=== PATIENT | female | born 1985 | race Caucasian/White ===

== ENCOUNTER 2016-06-06 10:24 | Emergency (ER) | payer OTHER ==
[2016-06-06 11:24] VITALS: BP 115/85
--- NOTE | 2016-06-06 11:56 | ED ---
Upper Extremity Pain - HPI Summary HPI Summary: 31yr female with complaint of right thumb. Onset last night when she picked up her son. She has pain 8/10. Pain over the base of proximal phalynx. Pain worse with movement. She denies numbness or tingling in the finger. No other complaints. Denies swelling. - History of Current Complaint Chief Complaint: UCUpperExtremity Stated Complaint: RIGHT THUMB PAIN Time Seen by Provider: 06/06/16 11:40 Hx Last Menstrual Period: IS ON CONTINUOUS BC. DOES NOT HAVE REG PERIODS - Allergies/Home Medications Allergies/Adverse Reactions: Allergies Allergy/AdvReac Type Severity Reaction Status Date / Time Hydrocodone [From Vicodin] Allergy Severe Hives Verified 06/06/16 11:08 Latex Allergy Severe Hives Verified 06/06/16 11:08 Morphine Allergy Severe Hives Verified 06/06/16 11:08 Penicillins Allergy Severe Hives Verified 06/06/16 11:08 PMH/Surg Hx/FS Hx/Imm Hx Previously Healthy: Yes Cardiovascular History: Denies: Hx Congestive Heart Failure, Hx Deep Vein Thrombosis, Hx Hypertension , Hx Myocardial Infarction, Hx Pacemaker/ICD Respiratory History: Denies: Hx Asthma, Hx Chronic Obstructive Pulmonary Disease (COPD), Hx Pneumonia, Hx Pulmonary Embolism - Surgical History Surgery Procedure, Year, and Place: 2 c-sections. TUBAL LIGATION. Appendectomy 2006 Infectious Disease History: No Infectious Disease History: Denies: Hx Clostridium Difficile, Hx Hepatitis, Hx Human Immunodeficiency Virus (HIV), Hx of Known/Suspected MRSA, Hx Shingles, Hx Tuberculosis, Hx Known/ Suspected VRE, Hx Known/Suspected VRSA, History Other Infectious Disease, Traveled Outside the [place] in Last 30 Days - Family History Known Family History: Positive: Cardiac Disease, Hypertension, Diabetes, Other - son with asthma - Social History Alcohol Use: None Substance Use Type: Reports: None Smoking Status (MU): Never Smoked Tobacco Review of Systems Constitutional: Negative Eyes: Negative ENT: Negative Cardiovascular: Negative Respiratory: Negative Musculoskeletal: Other - pain in the right thumb Skin: Negative Neurological: Negative All Other Systems Reviewed And Are Negative: Yes Physical Exam Triage Information Reviewed: Yes Vital Signs On Initial Exam: Initial Vitals Temp Pulse Resp BP Pulse Ox 98.8 F 97 16 115/85 100 06/06/16 11:04 06/06/16 11:04 06/06/16 11:04 06/06/16 11:04 06/06/16 11:04 Vital Signs Reviewed: Yes Appearance: Positive: Well-Appearing, No Pain Distress Skin: Positive: Warm, Skin Color Reflects Adequate Perfusion Head/Face: Positive: Normal Head/Face Inspection Eyes: Positive: Normal, EOMI Neck: Positive: Supple, Nontender Respiratory/Lung Sounds: Positive: Clear to Auscultation, Breath Sounds Present Cardiovascular: Positive: Other - pulses strong and good capillary refill right upper extremity Musculoskeletal: Positive: Other - right thumb without soft tissue swelling. She is tender over the proximal phalynx, and base of phalynx. No bruising. Neurological: Positive: Normal, Sensory/Motor Intact, Alert, Oriented to Person Place, Time, CN Intact II-III - [place] Coma Scale Best Eye Response: 4 - Spontaneous Best Motor Response: 6 - Obeys Commands Best Verbal Response: 5 - Oriented Diagnostics - Vital Signs Vital Signs Temp Pulse Resp BP Pulse Ox 06/06/16 11:04 98.8 F 97 16 115/85 100 - Laboratory Lab Statement: Any lab studies that have been ordered have been reviewed, and results considered in the medical decision making process. - Radiology right hand xray Xray Interpretation: No Acute Changes Radiology Interpretation Completed By: Radiologist Course/Dx - Course Course Of Treatment: 31 yr old with thumb pain after lifting her son. She refused to wait for xray results or for final disposition. She wanted to leave right away. No chance for any offering of a splint. She signed out AMA with risk of disability and continued pain, and incomplete evaluation, lack of referrals etc. - Diagnoses Provider Diagnoses: Thumb pain Discharge - Discharge Plan Condition: Good Disposition: AGAINST MEDICAL ADVICE Referrals: OPHELIA Sargent [Primary Care Provider] -
--- NOTE | 2016-06-06 12:17 | RAD ---
HISTORY: Right thumb trauma COMPARISONS: None VIEWS: 4, Frontal, lateral, and oblique views of the right hand FINDINGS: BONE DENSITY: Normal. BONES: There is no displaced fracture. JOINTS: There is no arthropathy. ALIGNMENT: There is no dislocation. SOFT TISSUES: Unremarkable. OTHER FINDINGS: None. IMPRESSION: NO ACUTE OSSEOUS INJURY. IF SYMPTOMS PERSIST, RECOMMEND REPEAT IMAGING.
== END 2016-06-06 12:12 | disposition left against medical advice (07) ==
LOC: UCCORT 10:24
DX: M79.644 Pain in right finger(s) (principal); Z88.5 Allergy status to narcotic agent; Z22.0 Carrier of typhoid
CPT/HCPCS: 99212; G0463

== ENCOUNTER 2016-08-18 19:59 | Emergency (ER) | payer OTHER ==
[2016-08-18 20:27] VITALS: BP 127/74
--- NOTE | 2016-08-18 20:52 | UC ---
Eye Complaint HPI - HPI Summary HPI Summary: pt presents with c/o bilateral eye, redness, discomfort, purulent discharge, and known exposure to conjunctivitis - History of Current Complaint Chief Complaint: UCEye Stated Complaint: EYE Time Seen by Provider: 08/18/16 20:48 Hx Obtained From: Patient Hx Last Menstrual Period: n/a ?: No Onset/Duration: Sudden Onset, Lasting Hours Timing: Constant Severity Initially: Mild Severity Currently: Mild Character: Dull, Foreign Body Sensation Aggravating Factor(s): Light Associated Signs And Symptoms: Positive: Photophobia, Drainage (Purulent) - Allergies/Home Medications Allergies/Adverse Reactions: Allergies Allergy/AdvReac Type Severity Reaction Status Date / Time Hydrocodone [From Vicodin] Allergy Severe Hives Verified 08/18/16 20:27 Latex Allergy Severe Hives Verified 08/18/16 20:27 Morphine Allergy Severe Hives Verified 08/18/16 20:27 Penicillins Allergy Severe Hives Verified 08/18/16 20:27 PMH/Surg Hx/FS Hx/Imm Hx Previously Healthy: Yes - Surgical History Surgical History: Yes Surgery Procedure, Year, and Place: 2 c-sections. TUBAL LIGATION. Appendectomy 2006 - Family History Known Family History: Positive: None, Cardiac Disease, Hypertension, Diabetes, Other - son with asthma - Social History Alcohol Use: None Substance Use Type: None Smoking Status (MU): Never Smoked Tobacco - Immunization History Most Recent Influenza Vaccination: 2014 Review of Systems Constitutional: Negative Skin: Negative Eyes: Drainage, Eye Redness, Photophobia ENT: Negative Respiratory: Negative Cardiovascular: Negative Gastrointestinal: Negative Genitourinary: Negative Motor: Negative Neurovascular: Negative Musculoskeletal: Negative Neurological: Negative Psychological: Negative All Other Systems Reviewed And Are Negative: Yes Physical Exam Triage Information Reviewed: Yes Appearance: Well-Appearing Vital Signs: Initial Vital Signs Temp 99.5 F 08/18/16 20:21 Pulse 84 08/18/16 20:21 Resp 18 08/18/16 20:21 BP 127/74 08/18/16 20:21 Eye Exam: Other Eyes: Positive: Conjunctiva Inflamed, Discharge - yellow Neck exam: Normal Respiratory Exam: Normal Neurological Exam: Normal Psychological Exam: Normal Skin Exam: Normal Eye Complaint Course/Dx - Differential Dx/Diagnosis Differential Diagnosis/HQI/PQRI: Conjunctivitis Provider Diagnoses: conjunctivitis Discharge - Discharge Plan Condition: Stable Disposition: HOME Patient Education Materials: Conjunctivitis (ED) Referrals: OPHELIA Sargent [Primary Care Provider] - If Needed Additional Instructions: Please follow up with your eye care provider as needed.
[2016-08-18] MEDS ORDERED: Polymyx/Trimethoprim OPTH* 10 ML BTL BOTH EYES ONE (20:53)
== END 2016-08-18 21:16 | disposition home or self-care (01) ==
LOC: UCCORT 19:59
DX: H10.33 Unspecified acute conjunctivitis, bilateral (principal); Z88.0 Allergy status to penicillin; Z88.5 Allergy status to narcotic agent; Z91.040 Latex allergy status
CPT/HCPCS: 99212; G0463

== ENCOUNTER 2016-09-19 08:25 | Emergency (ER) | payer OTHER ==
[2016-09-19 08:35] VITALS: BP 113/71
--- NOTE | 2016-09-19 18:11 | UC ---
Throat Pain/Nasal Boo HPI - HPI Summary HPI Summary: pt p/w st, earache. sinus congestion/pain/dugan, post-tussive emesis and cough productive of green sputum that interfers with sleep. pt states that sx started 5 days ago with fever, temp of 103. no fever since. - History of Current Complaint Chief Complaint: UCRespiratory Stated Complaint: COUGH,CONGESTION Time Seen by Provider: 09/19/16 08:30 Hx Obtained From: Patient Hx Last Menstrual Period: States she does not get menses due to BCP. ?: No Onset/Duration: Gradual Onset, Lasting Days, Still Present Pain Intensity: 5 Pain Scale Used: 0-10 Numeric Cough: Sputum Appears - green Associated Signs & Symptoms: Positive: Dysphagia, Wheezing, Sinus Discomfort, Nasal Discharge, Fever, Vomiting - post-tussive. Negative: Drooling, Hoarseness Related History: Seasonal Allergies - Epiglottits Risk Factors Epiglottis Risk Factors: Negative - Allergies/Home Medications Allergies/Adverse Reactions: Allergies Allergy/AdvReac Type Severity Reaction Status Date / Time Hydrocodone [From Vicodin] Allergy Severe Hives Verified 09/19/16 08:29 Latex Allergy Severe Hives Verified 09/19/16 08:29 Morphine Allergy Severe Hives Verified 09/19/16 08:29 Penicillins Allergy Severe Hives Verified 09/19/16 08:29 PMH/Surg Hx/FS Hx/Imm Hx Previously Healthy: Yes - Surgical History Surgical History: Yes Surgery Procedure, Year, and Place: 2 c-sections. TUBAL LIGATION. Appendectomy 2006 - Family History Known Family History: Positive: None, Cardiac Disease, Hypertension, Diabetes, Other - son with asthma - Social History Lives: With Family Alcohol Use: None Substance Use Type: None Smoking Status (MU): Never Smoked Tobacco - Immunization History Most Recent Influenza Vaccination: NONE 2016 Most Recent Tetanus Shot: UTD Most Recent Pneumonia Vaccination: N/A Review of Systems Constitutional: Fever - resolved Skin: Negative Eyes: Negative ENT: Sore Throat, Ear Ache, Nasal Discharge, Sinus Congestion, Sinus Pain/ Tenderness Respiratory: Cough Cardiovascular: Chest Pain - pleuritic Gastrointestinal: Vomiting - post-tussive Musculoskeletal: Negative Neurological: Headache - sinus All Other Systems Reviewed And Are Negative: Yes Physical Exam Triage Information Reviewed: Yes Appearance: Well-Appearing, No Pain Distress, Well-Nourished Vital Signs: Initial Vital Signs Temp 97.8 F 09/19/16 08:29 Pulse 107 09/19/16 08:29 Resp 16 09/19/16 08:29 BP 113/71 09/19/16 08:29 Pulse Ox 95 09/19/16 08:29 Vital Signs Reviewed: Yes Eyes: Positive: Conjunctiva Clear. Negative: Discharge ENT: Positive: Hearing grossly normal, Pharyngeal erythema, Nasal congestion, Nasal drainage, TMs normal, Other: - pos max tenderness bl. Negative: Tonsillar swelling, Tonsillar exudate, Trismus, Muffled/hoarse voice Dental Exam: Normal Neck: Positive: Supple, Nontender, No Lymphadenopathy Respiratory: Positive: No respiratory distress, No accessory muscle use, Wheezing - few scattered, Expiration - prolonged Cardiovascular: Positive: No Murmur, Tachycardia Neurological: Positive: Alert, Muscle Tone Normal Psychological: Positive: Normal Response To Family, Age Appropriate Behavior Skin Exam: Normal Throat Pain/Nasal Course/Dx - Differential Dx/Diagnosis Differential Diagnosis/HQI/PQRI: Pharyngitis, Sinusitis, Tonsillitis, URI, Other - bronchitis, pna Provider Diagnoses: sinusitis, bronchospasm Discharge - Discharge Plan Condition: Stable Disposition: HOME Prescriptions: Albuterol HFA INHALER* [Ventolin HFA Inhaler*] 2 puff INH Q4H PRN #1 mdi PRN Reason: Sob/Wheezing Benzonatate CAP* [Tessalon 100 MG CAP*] 100 mg PO TID #30 cap Cefdinir [Cefdinir 300 MG CAP] 300 mg PO BID #20 cap guaiFENesin ER TAB [Mucinex*] 600 mg PO BID PRN #1 box PRN Reason: Cough Patient Education Materials: Sinusitis (ED), Bronchospasm (ED) Referrals: OPHELIA De La Rosa [Primary Care Provider] - If Needed Additional Instructions: TRY USING THE NETTI POT IN THE MORNINGS DISCUSSED. YOU MUST ALWAYS USE CLEAN WATER. REMEMBER, POSTURE IS AN IMPORTANT FACTOR IN SINUS DRAINAGE. MOVE YOUR NECK, BREATHE. INHALED BRONCHODILATORS: You have received a prescription for an inhaled bronchodilator -- a medication which stimulates the airways in the lung to dilate. This improves the flow of air in asthma, bronchitis, and emphysema. These medicines have some similarity to adrenaline, and can cause similar side effects: shakiness, racing heart, and a sense of nervousness. These side effects decrease with time. Contact your doctor if these side effects are severe. Do not over-use the medicine. Too-frequent use of the inhaler may make it ineffective. Call your doctor if the inhaler is not controlling your symptoms at the prescribed doses. EXPECTORANT MEDICATION: An expectorant medicine has been prescribed. This type of drug makes mucous thinner, helping the sinuses, nose, and bronchial tubes to remain free of pus and mucous. Expectorants make a cough less severe and more comfortable, and help infected sinuses drain. In general, antihistamines defeat the purpose of the expectorant by making mucous thicker. They should be avoided unless specifically recommended by your physician. TESSALON PERLES: You have received a prescription for Tessalon Perles (benzonatate). This is a non-narcotic medicine for relief of cough. It usually works in about 15- 20 minutes and lasts around four hours. Tessalon Perles should be swallowed. They should not be chewed or dissolved in the mouth (this can produce temporary numbing of the mouth and choking can occur). If you develop any adverse effects such as wheezing, shortness of breath, hives, rash, itching, or lightheadedness, please return at once. ANTIBIOTICS ARE NOT CURRENTLY INDICATED FOR YOUR CONDITION. hOWEVER, IF YOUR SYMPTOMS WORSEN OR PERSIST FOR OVER THE NEXT 3-5 DAYS, YOU CAN TAKE THE FOLLOWING MEDICATION: CEPHALOSPORINS: An antibiotic of the cephalosporin class has been prescribed. This type of antibiotic covers a wide variety of infections, including those of the skin, lungs, middle ear, and urinary tract. This antibiotic is somewhat similar to the penicillin family. In rare cases , a person who is allergic to penicillin will also be allergic to this medication. If you have had a severe allergic reaction to penicillin, and have not taken this antibiotic since that time, notify your doctor. Antibiotics which cover many germs ("broad spectrum" antibiotics) are more likely to cause diarrhea or "yeast" infections. Women prone to vaginal yeast problems may suffer an attack after taking this antibiotic. In infants, oral thrush (white spots "stuck" on the cheek) or yeast diaper rash may result. See your doctor if these problems occur. Call the doctor at once if you develop hives, itching, shortness of breath , or lightheadedness. ANYTIME YOU TAKE AN ANTIBIOTIC, IT IS IMPORTANT TO REPLENISH THE BODY'D SUPPLY OF "GOOD BACTERIA." YOU CAN GET GOOD BACTERIA FROM HIGH QUALITY CULTURED FOODS SUCH LOCAL YOGURT, SOUR KRAUT, ABDIRASHID MARIE, NATURALLY FERMENTED PICKLES AND PROBIOTIC DRINKS. YOU CAN ALSO GET GOOD BACTERIA FROM A PROBIOTIC SUPPLEMENT.
== END 2016-09-19 09:22 | disposition home or self-care (01) ==
LOC: UCCORT 08:25
DX: J32.9 Chronic sinusitis, unspecified (principal); J98.01 Acute bronchospasm
CPT/HCPCS: 99212; G0463

== ENCOUNTER 2016-09-21 17:55 | Emergency (ER) | payer OTHER ==
[2016-09-21 19:13] VITALS: BP 122/77
--- NOTE | 2016-09-21 19:22 | UC ---
Ear Complaint HPI - HPI Summary HPI Summary: pt presents with c/o left side ear ache, "fullness", loss of hearing states she just needs to "pop" her ear to relieve the pressure. - History of Current Complaint Chief Complaint: UCEar Stated Complaint: LEFT EAR COMPLAINT Time Seen by Provider: 09/21/16 19:16 Hx Obtained From: Patient Hx Last Menstrual Period: PT IS ON BC THAT ELIMINATES MENSES. ?: No Onset/Duration: Gradual Onset, Lasting Days Severity Initially: Mild Severity Currently: Mild Associated Signs/Symptoms: Positive: Hearing Loss - Allergies/Home Medications Allergies/Adverse Reactions: Allergies Allergy/AdvReac Type Severity Reaction Status Date / Time Hydrocodone [From Vicodin] Allergy Severe Hives Verified 09/21/16 19:13 Latex Allergy Severe Hives Verified 09/21/16 19:13 Morphine Allergy Severe Hives Verified 09/21/16 19:13 Penicillins Allergy Severe Hives Verified 09/21/16 19:13 PMH/Surg Hx/FS Hx/Imm Hx Previously Healthy: Yes - Surgical History Surgical History: Yes Surgery Procedure, Year, and Place: 2 c-sections. TUBAL LIGATION. Appendectomy 2006 - Family History Known Family History: Positive: Cardiac Disease, Hypertension, Diabetes, Other - son with asthma - Social History Alcohol Use: None Substance Use Type: None Smoking Status (MU): Never Smoked Tobacco - Immunization History Most Recent Influenza Vaccination: NONE 2015 Most Recent Tetanus Shot: UTD Most Recent Pneumonia Vaccination: N/A Review of Systems Constitutional: Negative Skin: Negative Eyes: Negative ENT: Ear Ache, Other - loss of hearing Respiratory: Negative Cardiovascular: Negative Gastrointestinal: Negative Genitourinary: Negative Motor: Negative Neurovascular: Negative Musculoskeletal: Negative Neurological: Negative Psychological: Negative All Other Systems Reviewed And Are Negative: Yes Physical Exam Triage Information Reviewed: Yes Appearance: Well-Appearing Vital Signs: Initial Vital Signs Temp 98.5 F 09/21/16 19:07 Pulse 92 09/21/16 19:07 Resp 18 09/21/16 19:07 BP 122/77 09/21/16 19:07 Pulse Ox 100 09/21/16 19:07 Vital Signs Reviewed: Yes Eye Exam: Normal ENT Exam: Other ENT: Positive: TM bulging - left ear Neck exam: Normal Respiratory Exam: Normal Cardiovascular Exam: Normal Musculoskeletal Exam: Normal Neurological Exam: Normal Psychological Exam: Normal Skin Exam: Normal Ear Complaint Course/Dx - Differential Dx/Diagnosis Differential Diagnosis/HQI/PQRI: Otitis Media Provider Diagnoses: left ear ache Discharge - Discharge Plan Condition: Stable Disposition: HOME Prescriptions: Dexamethasone 0.1% OPTH.EL* 2 drop LEFT EAR Q12H #1 btl Patient Education Materials: Earache (ED) Referrals: OPHELIA Sargent [Primary Care Provider] -
== END 2016-09-21 19:45 | disposition home or self-care (01) ==
LOC: UCCORT 17:55
DX: H92.02 Otalgia, left ear (principal); Z88.0 Allergy status to penicillin; Z88.5 Allergy status to narcotic agent
CPT/HCPCS: 99212; G0463